=== PATIENT | female | born 1980 | race American Indian/Alaskan Native ===

== ENCOUNTER 2018-03-27 17:43 | Emergency (ER) | payer OTHER ==
[2018-03-27 18:09] VITALS: BP 146/88
[2018-03-27] MEDS ORDERED: MOTRIN PO ONE (20:04)
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
== END 2018-03-27 21:27 | disposition home or self-care (01) ==
LOC: ED 17:43
DX: S76.011A Strain of muscle, fascia and tendon of right hip, initial encounter (principal); S96.911A Strain of unspecified muscle and tendon at ankle and foot level, right foot, initial encounter; S13.4XXA Sprain of ligaments of cervical spine, initial encounter; S39.012A Strain of muscle, fascia and tendon of lower back, initial encounter; Z88.1 Allergy status to other antibiotic agents; V89.2XXA Person injured in unspecified motor-vehicle accident, traffic, initial encounter; Y93.89 Activity, other specified; Y92.89 Other specified places as the place of occurrence of the external cause; Y99.8 Other external cause status
CPT/HCPCS: 99283

== ENCOUNTER 2018-04-17 16:49 | Emergency (ER) | payer SELFPAY ==
[2018-04-17 17:09] VITALS: BP 173/88
[2018-04-17] MEDS ORDERED: DELTASONE PO ONE (19:47)
[2018-04-17] MEDS ORDERED: CLARITIN PO ONE (19:47)
--- NOTE | 2018-04-17 19:47 | Emergency Department Report ---
ED Rash HPI - HPI Chief Complaint: Skin Rash Stated Complaint: ALLERGIC REACTION Time Seen by Provider: 04/17/18 19:46 Duration: weeks Location: Neck, Chest, Upper Extremities, Other (throat tightness 1 week but denies any at present.) Suspected Cause: Unknown Rash Symptoms: Yes Itching (left upper extremity, left neck, facial area and bilateral chest), No Facial Swelling, No Tongue/Oral Swelling, No Breathing Difficulties, No Choking Sensation, No Wheezing/Dyspnea, No Peeling, No Blistering, No Fever, No Lightheaded, No Malaise, No Myalgias Severity: moderate (itching) Other History: This is a 38-year-old female here complaining of rash that started on her face and getting worse notes on her left arm, bilateral chest and left neck. She said this is being ongoing for 3 weeks and she has not taken any medication for rash. Complaining of a chin but reports no pain. Denies any cough, stridor, wheezing, swelling of lip or tongue. She says she was having some throat tightness but she is not having any at present. Denies any nausea or vomiting. Denies any cough in or chest pain. She cannot recall anything new in her environment except that she had been taken some vinegar. Denies that rash is painful. Pain is 0 out of 10. ED Review of Systems ROS: Stated complaint: ALLERGIC REACTION Other details as noted in HPI Constitutional: denies: chills, fever Eyes: denies: eye pain, eye discharge, vision change ENT: other (report that she had episodic throat tightness that is not severe at present). denies: ear pain, throat pain, dental pain, hearing loss, congestion Respiratory: denies: cough, shortness of breath, SOB with exertion, SOB at rest , stridor, wheezing Cardiovascular: denies: chest pain, palpitations, edema, syncope Gastrointestinal: denies: abdominal pain, nausea, vomiting Genitourinary: denies: urgency, dysuria Musculoskeletal: denies: back pain, joint swelling, arthralgia, myalgia Skin: rash, pruritus. denies: lesions Neurological: denies: headache, weakness, numbness, paresthesias, abnormal gait , vertigo ED Past Medical Hx - Past Medical History Previous Medical History?: Yes Hx Hypertension: (PIH with first 2 pregnancies) - Surgical History Past Surgical History?: Yes Additional Surgical History: x3,tubiligation - Family History Family history: no significant - Social History Smoking Status: Former Smoker Substance Use Type: None - Medications Home Medications: Home Medications Medication Instructions Recorded Confirmed Last Taken Type HYDROcodone/APAP 10-325 [[place] 1 each PO Q6HR PRN #20 tablet 11/02/15 Unknown Rx 10/325] Cyclobenzaprine [Flexeril] 10 mg PO QHS PRN #7 tablet 03/27/18 Unknown Rx Ibuprofen [Motrin] 600 mg PO Q8H PRN #30 tablet 03/27/18 Unknown Rx Prednisone [predniSONE 10 mg 10 mg PO .TAPER 6 Days #1 tab.ds.pk 04/17/18 Unknown Rx (6-Day Pack, 21 Tabs)] Triamcinolone 0.1% [Kenalog 0.1% 1 applic TP BID 7 Days #1 tube 04/17/18 Unknown Rx CREAM] hydrOXYzine HCL [Atarax] 25 mg PO Q6HR PRN #30 tablet 04/17/18 Unknown Rx Rash Exam - Exam General: Vital signs noted. No distress. Alert and acting appropriately. 38-year-old female well-nourished well-developed in no acute distress. HEENT: No Periorbital Edema, No Conjuctival Injection, No Chemosis, No Perioral Edema, No Tongue Edema, No Uvular Edema (is midline and oral airways patent. No inflammatory process noted), No Compromised Airway, No Drooling Lungs: Yes Good Air Exchange (CTAB), No Wheezes, No Ronchi, No Stridor, No Cough , No Labored Respirations, No Retractions, No Use of Accessory Muscles, No Other Abnormal Lung Sounds Heart: Yes Regular (S1, S2), No Murmur Skin: Yes Urticarial Rash (erythema, patches coalescent, differing morphology noted to left arm and forearm, bilateral facial area, left neck and chest. Nontender to palpate. Scaling noted.), Yes Erythema, No Maculopapular Rash, No Morbilliform rash, No Bulla(e), No Excoriations, No Weeping, No Tenderness, No Edema, No Encrustations, No Other Other: Positive: Abdomen Normal (nontender palpate in all quadrants, normal bowel sounds in all quadrants), Neurologic Normal (alert and oriented 3, GCS of 15 and normal gait), Musculoskeletal Normal (no clubbing, cyanosis or edema. +2 pulses to all extremities and no neurovascular compromise) ED Course Vital Signs 04/17/18 17:07 Temperature 98.8 F Pulse Rate 91 H Respiratory 18 Rate Blood Pressure 173/88 O2 Sat by Pulse 97 Oximetry - Reevaluation(s) Reevaluation #1: 04/17/18 20:43 Patient given Claritin 10 mg by mouth and Deltasone 60 mg by mouth and emergency room with relief of itching. ED Medical Decision Making - Medical Decision Making ED course: 38-year-old female here mom for rash rash to right upper extremity, bilateral chest, bilateral facial area and left neck 3 weeks. She said rash started out as a small bump and now it spread in. Rash is itching without any pain. She cannot recall anything new in her environment except that she started drinking vinegar. She has no respiratory difficulties except she reports that she had episodic tightening of the throat at some point but none now. Patient was seen by myself and examined and she is in stable condition. She was given Deltasone 60 mg and Zyrtec 10 mg by mouth for relief of itching. I discussed with mom and patient diagnosis and they voiced understanding. Physical finding is normal except for acute rash and itching. Patient has no respiratory symptoms or abnormal respiratory findings. A/P I: Contact dermatitis given Deltasone 60 mg. Emergency room and plan to discharge home on steroids 2: Pruritus-patient given Zyrtec 10 mg by mouth and plan to discharge home Atarax Patient educated on diagnosis, medication, need to follow-up, and skin care and they voiced understanding Vital signs are stable and afebrile. Discharge home in stable condition to follow up with primary care physician in 2 -3 days and also follow up with reshipping clerk in 2-3 days. Patient is stable and her itching has been relieved. Patient instructed to return to the emergency room if she has worsening symptoms and she voiced understanding. Critical care attestation.: If time is entered above; I have spent that time in minutes in the direct care of this critically ill patient, excluding procedure time. ED Disposition Clinical Impression: Pruritus Contact dermatitis Qualifiers: Contact dermatitis type: unspecified Contact dermatitis trigger: unspecified trigger Qualified Code(s): L25.9 - Unspecified contact dermatitis, unspecified cause Disposition: DC-01 TO HOME OR SELFCARE Is pt being admited?: No Does the pt Need Aspirin: No Condition: Stable Instructions: Itchy Skin (ED), Contact Dermatitis (ED) Additional Instructions: Take medication as prescribed but please do not drive or operate heavy machinery while taking Atarax for itching with this medication can cause drowsiness follow up with PCP and dermatology as instructed Keep Affected area clean and dry PLS avoid using vinegar as this could be the cause of her allergy You need to see reshipping clerk to do skin testing to see a urologist or to if you develop any facial swelling, swelling of the tongue, lips, wheezing, stridor, difficulty breathing, coughing, chest pain and increase in rash please return to the emergency room VITO otherwise follow up with reshipping clerk tomorrow. Prescriptions: hydrOXYzine HCL [Atarax] 25 mg PO Q6HR PRN #30 tablet PRN Reason: Itching Prednisone [predniSONE 10 mg (6-Day Pack, 21 Tabs)] 10 mg PO .TAPER 6 Days #1 tab.ds.pk Triamcinolone 0.1% [Kenalog 0.1% CREAM] 1 applic TP BID 7 Days #1 tube Referrals: PRIMARY CARE, [Primary Care Provider] - 2-3 Days MATT DE LOS SANTOS MD [Staff Physician] - 04/18/18 Forms: Work/School Release Form(ED)
== END 2018-04-17 21:00 | disposition home or self-care (01) ==
LOC: ED 16:49
DX: L25.9 Unspecified contact dermatitis, unspecified cause (principal); Z87.891 Personal history of nicotine dependence
CPT/HCPCS: 99282; J7512

== ENCOUNTER 2019-03-08 13:48 | Emergency (ER) | payer OTHER ==
[2019-03-08] MEDS ORDERED: IBUPROFEN PO ONE (13:55)
--- NOTE | 2019-03-08 13:55 | Emergency Department Report ---
Blank Doc - Documentation Documentation: This is a 39-year-old female that presents with sore throat and fever. This initial assessment/diagnostic orders/clinical plan/treatment(s) is/are subject to change based on patient's health status, clinical progression and re- assessment by fellow clinical providers in the ED. Further treatment and workup at subsequent clinical providers discretion. Patient/guardians urged not to elope from the ED as their condition may be serious if not clinically assessed and managed. Initial orders include: 1- Patient sent to [facility] for further evaluation and treatment 2- strep swab 3- motrin for fever
[2019-03-08 14:37] LABS: Bilirubin,Urine NEG (Negative); Blood,Urine NEG (Negative); Color,Urine Yellow (Yellow); Mucus,Urine FEW /HPF
--- NOTE | 2019-03-08 15:24 | Emergency Department Report ---
Minor Respiratory - HPI Chief Complaint: Upper Respiratory Infection Stated Complaint: SORE THROAT/STOMACH PAIN/WEAK Time Seen by Provider: 03/08/19 13:54 Duration: 3 Days Pain Location: Throat Severity: mild Minor Respiratory: Yes Sore Throat, Yes Able to Tolerate Fluids, Yes Cough, Yes Fever, No Rhinorrhea, No Ear Pain, No Sick Contacts, No Hemoptysis, No Chest Pain, No Shortness of Breath Other History: This is a 39-year-old female who presents to ED complaining of cough congestion and sore throat. Patient states that she's also been ex pressing fear for the past couple days. Patient states that she has not been around anyone that has been sick. Patient is complaining about generalized body aches that started is today. ED Review of Systems ROS: Stated complaint: SORE THROAT/STOMACH PAIN/WEAK Other details as noted in HPI Comment: All other systems reviewed and negative ED Past Medical Hx - Past Medical History Previous Medical History?: Yes Hx Hypertension: Yes (PIH with first 2 pregnancies) - Surgical History Past Surgical History?: Yes Additional Surgical History: x3, Tubal Ligation - Social History Smoking Status: Never Smoker Substance Use Type: None - Medications Home Medications: Home Medications Medication Instructions Recorded Confirmed Last Taken Type HYDROcodone/APAP 10-325 [[place] 1 each PO Q6HR PRN #20 tablet 11/02/15 Unknown Rx 10/325] Cyclobenzaprine [Flexeril] 10 mg PO QHS PRN #7 tablet 03/27/18 Unknown Rx Ibuprofen [Motrin] 600 mg PO Q8H PRN #30 tablet 03/27/18 Unknown Rx Prednisone [predniSONE 10 mg 10 mg PO .TAPER 6 Days #1 tab.ds.pk 04/17/18 Unknown Rx (6-Day Pack, 21 Tabs)] metroNIDAZOLE [Flagyl] 500 mg PO Q12HR #14 tab 10/28/18 Unknown Rx Ibuprofen [Ibuprofen 800] 800 mg PO Q8HR PRN #20 tablet 03/08/19 Unknown Rx Triamcinolone 0.1% [Kenalog 0.1% 1 applic TP BID 7 Days #2 tube 03/08/19 Unknown Rx CREAM] hydrOXYzine HCL [Atarax] 25 mg PO Q6HR PRN #30 tablet 03/08/19 Unknown Rx Minor Respiratory Exam - Exam General: Vital signs noted. No distress. Alert and acting appropriately. HEENT: Yes Moist Mucous Membranes, No Pharyngeal Erythema, No Pharyngeal Exudates, No Rhinorrhea, No Conjuctival Injection, No Frontal Tenderness, No Maxillary Tenderness Ear: Neither TM Bulge, Neither TM Erythema, Neither EAC Pain, Neither EAC Discharge Neck: Yes Supple, No Adenopathy Lungs: Yes Good Air Exchange, No Wheezes, No [place], No Stridor, No Cough, No Labored Respirations, No Retractions, No Use of Accessory Muscles, No Other Abnormal Lung Sounds Heart: Yes Regular, No Murmur Abdomen: Yes Normal Bowel Sounds, No Tenderness, No Peritoneal Signs Skin: No Rash, No Edema Neurologic: Alert and oriented, no deficits. Musculoskeletal: Unremarkable. ED Course Vital Signs 03/08/19 13:55 Temperature 102.9 F H Pulse Rate 117 H Respiratory 18 Rate Blood Pressure 155/98 O2 Sat by Pulse 99 Oximetry ED Medical Decision Making - Lab Data Result diagrams: 03/08/19 15:56 03/08/19 15:56 - Radiology Data Radiology results: report reviewed, image reviewed FINDINGS: Heart: Normal. Mediastinum/Vessels: Normal. Lungs/Pleural space: Normal. Bony thorax: No acute osseous abnormality. Life support devices: None. IMPRESSION: No acute cardiopulmonary abnormality. No change This document is electronically signed by Renetta Benjamin MD., March 08 2019 04:39:07 PM ET Transcribed By: [facility] Dictated By: RENETTA BENJAMIN MD Electronically Authenticated By: RENETTA BENJAMIN MD Signed Date/Time: 03/08/19 1641 - Medical Decision Making 39-year-old female presents with upper respiratory infection. Patient also states she has a history of eczema and is of the steroid cream. Chest x-ray was ordered, cxr shows no acute cardiopulmonary process. I find discussed his findings with the patient Vital signs are normal patient is in no acute distress This follow-up primary care physician. Critical care attestation.: If time is entered above; I have spent that time in minutes in the direct care of this critically ill patient, excluding procedure time. ED Disposition Clinical Impression: Viral syndrome, Upper respiratory infection Disposition: DC-01 TO HOME OR SELFCARE Is pt being admited?: No Does the pt Need Aspirin: No Condition: Stable Instructions: Upper Respiratory Infection (ED), Viral Syndrome (ED) Additional Instructions: Make sure to follow up with the primary care physician as discussed. Take all your medications as you've been prescribed. If you have any worsening symptoms or develop new symptoms please return to ED immediately. Prescriptions: hydrOXYzine HCL [Atarax] 25 mg PO Q6HR PRN #30 tablet PRN Reason: Itching Ibuprofen [Ibuprofen 800] 800 mg PO Q8HR PRN #20 tablet PRN Reason: Pain, Moderate (4-6) Triamcinolone 0.1% [Kenalog 0.1% CREAM] 1 applic TP BID 7 Days #2 tube Referrals: DEVIN SANTAMARIA MD [Primary Care Provider] - 3-5 Days [facility] [place]Outside] - 3-5 Days [facility] [Outside] - 3-5 Days Forms: Accompanied Note, Work/School Release Form(ED) Time of Disposition: 18:33
[2019-03-08] MEDS ORDERED: NACL 0.9% 1000 ML 1,000 ML IV ONE (16:23)
[2019-03-08 16:27] LABS: Basophils % (Auto) 0.2 % (0.0-1.8); Eosinophils % (Auto) 0.8 % (0.0-4.3); Hematocrit 32.7 % (30.3-42.9); Hemoglobin 10.7 gm/dl (10.1-14.3); Lymphocytes # (Auto) 0.3 K/mm3 (1.2-5.4); Lymphocytes % (Auto) 7.3 % (13.4-35.0); Mean Corpuscular HGB Conc 33 % (30-34); Mean Corpuscular Volume 79 fl (79-97); Monocytes # (Auto) 0.4 K/mm3 (0.0-0.8); Monocytes % (Auto) 8.1 % (0.0-7.3); Platelet Count 214 K/mm3 (140-440); Red Blood Count 4.13 M/mm3 (3.65-5.03); Red Cell Distribution Width 15.3 % (13.2-15.2)
[2019-03-08 16:38] LABS: BUN/Creatinine Ratio 8; Blood Urea Nitrogen 7 mg/dL (7-17); Hemolysis Index 0
--- NOTE | 2019-03-08 16:41 | XRay Report ---
PROCEDURE: XR CHEST ROUTINE 2V TECHNIQUE: Chest radiograph , PA and lateral views. HISTORY: fever COMPARISONS: CXR 11/02/2015 . FINDINGS: Heart: Normal. Mediastinum/Vessels: Normal. Lungs/Pleural space: Normal. Bony thorax: No acute osseous abnormality. Life support devices: None. IMPRESSION: No acute cardiopulmonary abnormality. No change This document is electronically signed by Renetta Benjamin MD., March 08 2019 04:39:07 PM ET
[2019-03-08 17:40] VITALS: BP 126/76
== END 2019-03-08 18:56 | disposition home or self-care (01) ==
LOC: ED 13:48
DX: B34.9 Viral infection, unspecified (principal); J02.9 Acute pharyngitis, unspecified; I10 Essential (primary) hypertension
CPT/HCPCS: 36415; 71046; 80048; 81001; 85025; 87116; 87430; 99284; J7030